=== PATIENT | female | born 1960 | race Caucasian/White ===

== ENCOUNTER 2019-04-30 09:14 | Day surgery (SDC) | payer BC ==
[2019-04-30] MEDS ORDERED: PROPOFOL 10 MG/ML VIAL IV ONE (09:15)
[2019-04-30] MEDS ORDERED: LIDOCAINE 2% MDV (20MG/ML) 20ML VIAL IV ONE (09:15)
--- NOTE | 2019-05-04 08:00 | Operative Note ---
OPERATION: COLONOSCOPY to the cecum with cold biopsy forceps polypectomy x1. INDICATION: Prior history of adenomatous polyps. The patient returns after 3 years for surveillance. ANESTHESIA: Intravenous sedation was administered by the department of anesthesiology and included Diprivan titrated to effect. PROCEDURE: Following informed consent from this alert individual including a discussion of the risks and benefits of the procedure and an opportunity for the patient to ask questions, the patient was in the left lateral decubitus position. A digital rectal examination was performed. No abnormalities were noted. Following this, the Olympus [id number] video colonoscope was inserted into the rectum without resistance. The rectal mucosa had a normal appearance with normal folds and distensibility. The sigmoid colon had a few scattered diverticula. The colonoscope was advanced up through the bowel to the level of the cecum without additional abnormalities. The cecum was well defined by noting the appendiceal orifice and ileocecal valve. The terminal ileum was cannulated and found to be unremarkable. From the base of the cecum, the colonoscope was then slowly withdrawn. The colon preparation overall was good. No changes were noted until the sigmoid colon was reached. Again, scattered diverticula were seen in the sigmoid region and a diminutive 3 mm polyp was noted and removed with biopsy forceps. Retroflexion in the rectum was endoscopically normal. The endoscope was straightened and withdrawn. The patient tolerated the procedure well and was returned to the recovery area in stable condition. IMPRESSION: 1. Sigmoid diverticulosis. 2. Diminutive sigmoid polyp removed with biopsy forceps. RECOMMENDATIONS: The patient was advised she should receive a copy of her pathology report at home in the next 2-3 weeks. If not, she was asked to call my office to review the results of testing today. Further recommendations will be forthcoming pending those results. Followup will also be with Dr. Santino Davenport. As always, thank you for allowing me to participate in the care of your patient. MUNDO
== END 2019-04-30 11:20 | disposition home or self-care (01) ==
LOC: HOP 09:14
PROVIDERS: ATTEND Internal Medicine Gastroenterology
DX: Z09 Encounter for follow-up examination after completed treatment for conditions other than malignant neoplasm (principal); Z86.010 Personal history of colon polyps; K63.5 Polyp of colon; K57.30 Diverticulosis of large intestine without perforation or abscess without bleeding